=== PATIENT | female | born 1985 | race Caucasian/White ===

== ENCOUNTER 2018-02-11 06:21 | Day surgery (SDC) | payer OTHER ==
[~2018-02-11 06:21] MED LIST: Buffered Lidocaine 0.9% SYRIN* 5 ML/SYR SYRINGE INTRADERM ONE
[2018-02-11] MEDS ORDERED: Buffered Lidocaine 0.9% SYRIN* 5 ML/SYR SYRINGE ONE (06:31)
[2018-02-11] MEDS ORDERED: Midazolam* 1 MG/ML 5 ML VIAL (5 MG) ONE (07:14)
[2018-02-11] MEDS ORDERED: fentaNYL* 50 MCG/ML 2 ML VIAL (100 MCG VIAL) ONE (07:14)
[2018-02-11] MEDS ORDERED: Naloxone* 0.4 MG/ML 1 ML VIAL IV PRN (08:42)
[2018-02-11] MEDS ORDERED: Propofol* 10 MG/ML 20 ML BTL IV PUSH ONE (09:18)
[2018-02-11] MEDS ORDERED: Lidocaine 2% PF * 5 ML VIAL ONE (09:36)
--- NOTE | 2018-02-11 09:47 | BRIEFOPN ---
Brief Operative Note - Surgery Procedures: Procedures OPERATIVE REPORT PRE-OP: GERD, hiatal hernia, morbid obesity POST-OP: Same, small hiatal hernia, no esophagitis or Avilez's, normal stomach and duodenum PROCEDURE:EGD with SEDRICK bx and distal esophageal bx (38 cms) at squamocolumnar junction SURGEON: MD Heidi ANESTHESIA:MAC Dr. Mccollum ASST:none IVF:min EBL:trace SPECIMEN: SEDRICK bx and esophageal bx at 38 cms DRAIN: none WOUND CLASS:N/A COMPLICATIONS: none TO PACU
[2018-02-11 10:09] VITALS: BP 117/60
--- NOTE | 2018-02-11 14:33 | OP ---
CC: Dr. Navin Del Rosario * DATE OF OPERATION: 02/11/18 - [facility] DATE OF : 83 SURGEON: Dre Gordon MD BED SPRING MAKER: None. ANESTHESIA: Monitored anesthesia care with Dr. Rogers. PRE-OP DIAGNOSES: 1. Morbid obesity. 2. Hiatal hernia. 3. Gastroesophageal reflux disease. 4. Bariatric evaluation. POST-OP DIAGNOSES: 1. Morbid obesity. 2. Mild irregularity at 38 cm. The gastroesophageal junction without evidence of Avilez's esophagus, web, strictures, esophagitis or narrowing. 3. Stomach and duodenum were normal. OPERATIVE PROCEDURE: Esophagogastroduodenoscopy with gastric antral SEDRICK biopsy as well as biopsies at 38 cm at the squamocolumnar junction. ESTIMATED BLOOD LOSS: Trace. WOUND CLASSIFICATION: Not applicable. DRAINS: None. COMPLICATIONS: None. BRIEF HISTORY: Ms. Arina Buitrago is a 32-year-old morbidly obese woman, undergoing bariatric evaluation. She had an upper GI which showed a small sliding hiatal hernia. She has some history of reflux disease, does not take medicines. DESCRIPTION OF PROCEDURE: Written informed consent was obtained. The patient was taken to the operating room, placed in the left lateral decubitus position. Appropriate monitoring devices were given. Anesthesia was with monitored anesthesia care. Time-out verification was completed. The Olympus adult video endoscope was then inserted into the posterior pharynx under direct vision. The esophagus was intubated. The proximal, mid, and distal esophagus appeared to be unremarkable. The squamocolumnar junction was noted at 38 cm and it was slightly irregular, but no evidence of Avilez's esophagus, web, strictures, esophagitis. The stomach was entered and was insufflated. On retroflexion, there was a small sliding hiatal hernia, although this was not appeared to be significant. The cardia, body, and antrum of the stomach were normal. SEDRICK biopsies were taken. The pylorus was widely patent. The duodenal bulb and first and second portion of the duodenum were unremarkable. The endoscope was then withdrawn back up into the esophagus and several biopsies were taken at 38 cm of the distal esophagus. The endoscope was withdrawn. The remainder of the esophagus was normal. The endoscope was then withdrawn. The patient tolerated the procedure well, was taken to the recovery room in stable condition. [id number]/[facility] #: [id number] [facility]
== END 2018-02-11 10:39 | disposition home or self-care (01) ==
LOC: OR 06:21
PROVIDERS: ATTEND Surgery
DX: E66.01 Morbid (severe) obesity due to excess calories (principal); K21.0 Gastro-esophageal reflux disease with esophagitis; K44.9 Diaphragmatic hernia without obstruction or gangrene; J45.909 Unspecified asthma, uncomplicated; F32.9 Major depressive disorder, single episode, unspecified
CPT/HCPCS: 81025; 87077; 88305; J2250; J2704; J3010

== ENCOUNTER 2018-03-16 20:29 | Emergency (ER) | payer OTHER ==
[2018-03-16 20:42] VITALS: BP 133/83
--- NOTE | 2018-03-16 20:51 | UC ---
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 - History of Current Complaint Chief Complaint: UCGeneralIllness Stated Complaint: SORE THROAT Time Seen by Provider: 03/16/18 20:37 Hx Obtained From: Patient Hx Last Menstrual Period: 03/16/2018 ?: No Onset/Duration: Sudden Onset, Lasting Days - 4, Still Present Pain Intensity: 4 Pain Scale Used: 0-10 Numeric Cough: Nonproductive - Allergies/Home Medications Allergies/Adverse Reactions: Allergies Allergy/AdvReac Type Severity Reaction Status Date / Time ciprofloxacin [From Cipro] Allergy GI Upset Verified 03/16/18 20:43 PMH/Surg Hx/FS Hx/Imm Hx Previously Healthy: Yes Psychological History: Anxiety - Surgical History Surgical History: Yes Surgery Procedure, Year, and Place: TONSILLECTOMY ADNOIDECTOMY ;. LEFT FOOT WITH SCREW ;. ; - Family History Known Family History: Positive: None - Social History Occupation: Employed Full-time Lives: With Family Alcohol Use: Rare Alcohol Amount: 1-2 DRINKS/MONTH Substance Use Type: None Smoking Status (MU): Never Smoked Tobacco Have You Smoked in the Last Year: No Review of Systems All Other Systems Reviewed And Are Negative: Yes Constitutional: Positive: Negative Skin: Positive: Negative Eyes: Positive: Negative ENT: Positive: Sore Throat, Ear Ache Respiratory: Positive: Cough Cardiovascular: Positive: Negative Gastrointestinal: Positive: Negative Genitourinary: Positive: Negative Motor: Positive: Negative Neurovascular: Positive: Negative Musculoskeletal: Positive: Negative Neurological: Positive: Negative Psychological: Positive: Negative Is Patient Immunocompromised?: No Physical Exam Triage Information Reviewed: Yes Appearance: Well-Appearing, No Pain Distress, Well-Nourished Vital Signs: Initial Vital Signs Temp 99.4 F 03/16/18 20:34 Pulse 68 03/16/18 20:34 Resp 16 03/16/18 20:34 BP 133/83 03/16/18 20:34 Pulse Ox 99 03/16/18 20:34 Vital Signs Reviewed: Yes Eye Exam: Normal Eyes: Positive: Conjunctiva Clear ENT Exam: Normal ENT: Positive: Normal ENT inspection, Hearing grossly normal, Pharynx normal, TMs normal, Uvula midline. Negative: Nasal congestion, Nasal drainage, Trismus , Muffled voice, Hoarse voice, Dental tenderness, Sinus tenderness Dental Exam: Normal Neck exam: Normal Neck: Positive: Supple, Nontender, No Lymphadenopathy Respiratory Exam: Normal Respiratory: Positive: Chest non-tender, Lungs clear, Normal breath sounds, No respiratory distress, No accessory muscle use Cardiovascular Exam: Normal Cardiovascular: Positive: RRR, No Murmur, Pulses Normal, Brisk Capillary Refill Musculoskeletal Exam: Normal Musculoskeletal: Positive: Strength Intact, ROM Intact, No Edema Neurological Exam: Normal Neurological: Positive: Alert, Muscle Tone Normal Psychological Exam: Normal Skin Exam: Normal Diagnostics - Laboratory Diagnostic Studies Completed/Ordered: RST (-) Throat Pain/Nasal Course/Dx - Course Assessment/Plan: Albuterol MDI, tylenol, ibuprofen, increase fluids follow with pcp prn - Differential Dx/Diagnosis Provider Diagnoses: URI, bronchospasm Discharge - Sign-Out/Discharge Documenting (check all that apply): Patient Departure All imaging exams completed and their final reports reviewed: No Studies - Discharge Plan Condition: Stable Disposition: HOME Patient Education Materials: Upper Respiratory Infection (ED), How to Use a Metered-Dose Inhaler and a Spacer (ED) Referrals: Rachael Wasserman DO [Primary Care Provider] - If Needed - Billing Disposition and Condition Condition: STABLE Disposition: Home
[2018-03-16] MEDS ORDERED: Albuterol HFA INHALER* 8 gm MDI INH ONE (21:01)
== END 2018-03-16 21:12 | disposition home or self-care (01) ==
LOC: UCEAST 20:29
DX: J06.9 Acute upper respiratory infection, unspecified (principal); J98.01 Acute bronchospasm; Z88.1 Allergy status to other antibiotic agents
CPT/HCPCS: 87651; 99212; A9270-GY; G0463

== ENCOUNTER 2018-04-04 07:05 | Inpatient (IN) | payer OTHER ==
[2018-04-04] MEDS ORDERED: ceFAZolin 1 GM ADVAN(*) 1 GM ADDV.VIAL IVPB ONE ×2 (07:41→07:42)
[2018-04-04] MEDS ORDERED: Heparin VIAL(*) 5000 UNITS/ML VIAL (FIVE THOUSAND) ONE (07:41)
[2018-04-04] MEDS ORDERED: ceFAZolin 2 GM PREMIX in ORs 2 GM/50 ML BAG IVPB ONE (07:41)
[2018-04-04] MEDS ORDERED: Famotidine IV* 10 MG/ML 2 ML (20 mg) ONE (07:41)
[2018-04-04] MEDS ORDERED: Dexamethasone IV* 4 MG/ML 1 ML (4 MG) ONE (07:41)
[2018-04-04] MEDS ORDERED: Morphine PCA ADULT* 5 MG/ML 30 ML ONE (07:42)
[2018-04-04] MEDS ORDERED: Scopolamine 1.5 mg* PATCH ONE (07:42)
[2018-04-04] MEDS ORDERED: Morphine VIAL* 4 MG/ML VIAL (1 ml vial) IV PRN (09:11)
[2018-04-04] MEDS ORDERED: Naloxone* 0.4 MG/ML 1 ML VIAL IV PRN (09:11)
[2018-04-04] MEDS ORDERED: PROCHLORPERAZINE INJ 5 MG/ML 2 ML VIAL IV PRN (09:11)
[2018-04-04] MEDS ORDERED: Acetaminophen IV 1GM/100ML * 1,000 MG/100 ML VIAL IVPB ONE (09:11)
[2018-04-04] MEDS ORDERED: fentaNYL* 50 MCG/ML 2 ML VIAL (100 MCG VIAL) ONE ×2 (12:06→13:14)
[2018-04-04] MEDS ORDERED: Morphine VIAL* 4 MG/ML VIAL (1 ml vial) ONE (12:06)
[2018-04-04] MEDS: fentaNYL* 50 MCG/ML 2 ML VIAL (100 MCG VIAL) IV PRN ×5 (12:08→13:43)
[2018-04-04] MEDS ORDERED: Acetaminophen ADULT LIQ* 650 MG/20.3 ML UDC PO PRN (12:09)
[2018-04-04] MEDS ORDERED: HYDROmorphone INJ1* 1 MG/ML SYRINGE IV PRN ×2 (12:09→12:18)
[2018-04-04] MEDS ORDERED: Ondansetron INJ* 2 MG/ML VIAL IV PRN (12:09)
--- NOTE | 2018-04-04 12:09 | OP ---
Operative Report - Blank - Operative Report Date of Operation: 04/04/18 Note: Brief Operative Note Preop Dx: Morbid Obesity Postop Dx: same Procedure: Laparoscopic Darlene en Y gastric bypass Anesthesia: GET Surgeon: Miguel Ángel Nurse Case Management: RENETTA Hutchison Fluids: 2000 ml RL EBL: 100 ml Specimen: none Drains: none Findings: dictated
[2018-04-04] MEDS ORDERED: PROCHLORPERAZINE INJ 5 MG/ML 2 ML VIAL ONE (12:22)
[2018-04-04] MEDS: Ketorolac INJ* 30 MG/ML 1 ML VIAL IV PRN ×2 (14:58→21:20)
[2018-04-04] MEDS: Heparin VIAL(*) 5000 UNITS/ML VIAL (FIVE THOUSAND) SUBCUT SCH ×2 (15:31→21:25)
[2018-04-04] MEDS: Famotidine IV* 10 MG/ML 2 ML (20 mg) IV SLOW PU SCH (20:12)
[2018-04-05] MEDS: Ketorolac INJ* 30 MG/ML 1 ML VIAL IV PRN ×3 (05:51→19:32)
[2018-04-05] MEDS: Heparin VIAL(*) 5000 UNITS/ML VIAL (FIVE THOUSAND) SUBCUT SCH ×3 (05:53→21:47)
[2018-04-05] MEDS: Famotidine IV* 10 MG/ML 2 ML (20 mg) IV SLOW PU SCH ×2 (09:11→21:43)
--- NOTE | 2018-04-05 09:41 | OP ---
CC: [facility]; [facility] * DATE OF OPERATION: 04/04/18 - ROOM #353 DATE OF : 83. SURGEON: Navin Del Rosario MD. FACILITIES MANAGER: RENETTA Ferguson. ANESTHESIOLOGIST: Jonn Hodges MD. ANESTHESIA: General endotracheal. PRE-OP DIAGNOSIS: Morbid obesity. POST-OP DIAGNOSIS: Morbid obesity. OPERATIVE PROCEDURE: Laparoscopic Darlene-en-Y gastric bypass. ESTIMATED BLOOD LOSS: 50 mL. IV FLUIDS: Crystalloids. SPECIMEN: None. DRAINS: None. COMPLICATIONS: None. COUNTS: Instrument, needle, sponge counts correct. DESCRIPTION OF PROCEDURE: The patient was brought to the operating room, placed on the table supine. Sequential compression devices were placed on both lower extremities. General anesthesia was administered. Collins catheter was placed. She was positioned and padded appropriately and received appropriate intravenous antibiotics. She was prepped and draped in the usual sterile fashion and time-out was performed. Local anesthetic was infiltrated into the skin and soft tissue prior to each incision. Entry to the abdomen was through a left upper quadrant incision accommodating a 12-mm optical trocar. After accessing the peritoneal cavity, carbon dioxide was insufflated to a pressure of 15 mmHg. Under direct visualization, 12-mm bladeless trocars were placed in the supraumbilical midline and right upper quadrant. A 5-mm trocar was placed in the right upper quadrant medially and another one in the left upper quadrant laterally. A [place] liver retractor was placed percutaneously in the subxiphoid position and used to elevate the left lobe of the liver. There was a hiatal hernia noted with dimpling anteriorly. The stomach was retracted cephalad and dissection was performed bluntly at the angle of His to free this away from the left douglas of the diaphragm. Next, perigastric dissection was undertaken on the lesser curvature of the stomach at the second crossing vein. The vascular bundle was divided with LigaSure. The lesser sac was entered and then with several firings of the EndoGIA stapler with ortiz cartridges, a gastric pouch was created approximating 15 to 30 mL volume. The staple lines were noted to be intact and hemostatic. Next, the omentum was mobilized from the lower abdomen. This included lysis of adhesions of omentum to the left lower quadrant. After retracting the omentum cephalad, it was divided down the midline with LigaSure. Ligament of Treitz was identified. The jejunum was measured out for approximately 50 cm at which point the loop was sutured to the lateral staple line of the gastric pouch with interrupted 2-0 silks. Next, a gastrectomy was created in the gastric pouch and there was noted to be brisk bleeding from within the lumen. Ultimately, it was controlled by placing a clip on the area of the gastrohepatic ligament. An anastomosis was then performed [id number] with the EndoGIA stapler with a 30- mm ortiz cartridge. The gastroenterotomy was then closed with 3-0 PDS. There were some venous congestion noted at the lower aspect of the gastric pouch anteriorly. Inspection of the posterior aspect revealed pink and healthy tissue. In order to imbricate this area, 2-0 silks were used to oversew this with the 34-Latvian gastric lavage tube through the lumen in order to assure this did not occlude the lumen. To complete the anastomosis, the [place] loop was divided to left of the gastric pouch with a 45-mm SHEELA stapler. Next, the Darlene limb was measured out for 75 cm length and at this point a functional end-to-side jejunojejunostomy was created with a 60-mm ortiz EndoGIA stapler. The common enterotomy was run closed with the 3-0 PDS to and fro. 3-0 silks were then used to close the mesenteric defect. The gastrojejunal anastomosis was tested with methylene blue dye instilled through the orogastric tube. No leak was identified. The tube was withdrawn after aspirating the solution. Final inspection revealed hemostasis to be excellent and there was noted to be no twisting of the Darlene limb. At this point, the ports were removed under direct visualization and carbon dioxide was released. Skin incisions were closed with 4-0 Monocryl in a subcuticular fashion. Steri-Strips were applied. The patient was extubated uneventfully and transferred to the recovery room in stable condition. [id number]/[facility] #: [id number] [facility]ITALViky
[2018-04-05] MEDS: HYDROcodone/ACET. 7.5/325 LIQ* 15 ML UDC PO PRN ×3 (10:30→23:21)
[2018-04-05] MEDS: D5W 1/2 NS KCl 20 Meq 1000 ML* 1,000 ML IV SCH ×2 (12:39→20:43)
[2018-04-06] MEDS: D5W 1/2 NS KCl 20 Meq 1000 ML* 1,000 ML IV SCH (05:07)
[2018-04-06] MEDS: Ketorolac INJ* 30 MG/ML 1 ML VIAL IV PRN (05:12)
[2018-04-06] MEDS: Heparin VIAL(*) 5000 UNITS/ML VIAL (FIVE THOUSAND) SUBCUT SCH (05:16)
[2018-04-06] MEDS: HYDROcodone/ACET. 7.5/325 LIQ* 15 ML UDC PO PRN (09:16)
[2018-04-06] MEDS: Famotidine IV* 10 MG/ML 2 ML (20 mg) IV SLOW PU SCH (09:16)
--- NOTE | 2018-04-06 09:17 | PN ---
Progress Note - Progress Note Date of Service: 04/06/18 SOAP: Subjective: Pt seen and examined. feels well. ambulating Objective: Temp Pulse Resp BP Pulse Ox 98.5 F 60 18 111/50 97 04/06/18 04:08 04/06/18 04:08 04/06/18 04:08 04/06/18 04:08 04/06/18 04:08 Intake & Output 04/05/18 04/06/18 04/06/18 22:59 06:59 14:59 Intake Total 3378 90 Output Total 800 250 Balance 2578 -160 a and o x3, nad abdo: soft/ obese, NT ext wnl Assessment: POD 2 rygb Plan: d/c home appointment next week at [facility]
[2018-04-06 09:35] VITALS: BP 127/66
== END 2018-04-06 11:20 | disposition home or self-care (01) | DRG 403 ==
LOC: AA 07:05 → SSU 12:09
PROVIDERS: ADMIT Surgery; ATTEND Surgery
PROC: 0D164ZA Bypass Stomach to Jejunum, Percutaneous Endoscopic Approach (ICD-10-PCS; principal; 2018-04-04)
PROC: 0DNW4ZZ Release Peritoneum, Percutaneous Endoscopic Approach (ICD-10-PCS; 2018-04-04)
DX: E66.01 Morbid (severe) obesity due to excess calories (principal); Q79.6 Ehlers-Danlos syndromes; Z68.43 Body mass index [BMI] 50.0-59.9, adult; K66.0 Peritoneal adhesions (postprocedural) (postinfection); K44.9 Diaphragmatic hernia without obstruction or gangrene; I10 Essential (primary) hypertension; F32.9 Major depressive disorder, single episode, unspecified; F41.9 Anxiety disorder, unspecified; Z79.899 Other long term (current) drug therapy; Z88.8 Allergy status to other drugs, medicaments and biological substances; Z80.51 Family history of malignant neoplasm of kidney; Z80.1 Family history of malignant neoplasm of trachea, bronchus and lung; Z80.3 Family history of malignant neoplasm of breast; Z80.8 Family history of malignant neoplasm of other organs or systems; Z82.49 Family history of ischemic heart disease and other diseases of the circulatory system; Z82.3 Family history of stroke; Z81.8 Family history of other mental and behavioral disorders
CPT/HCPCS: A9270-GY; J0690; J0780; J1100; J1170; J1644; J1885; J2270; J2405; J3010

== ENCOUNTER 2021-02-07 08:29 | Inpatient (IN) ==
[2021-02-07] MEDS ORDERED: Lactated Ringers 1000 ml BAG 1,000 ML IV ONE (09:39)
[2021-02-07] MEDS ORDERED: Famotidine IV 10 MG/ML 2 ml VIAL (20 mg) IV SLOW PU ONE (09:39)
[2021-02-07] MEDS ORDERED: Acetaminophen IV 1 GM/100ML 100 ML IV ONE (09:40)
[2021-02-07 10:42] LABS: ABS Eosinophils 0.3 10^3/ul (0-0.6); ABS Lymphocytes 1.3 10^3/ul (1.0-4.8); ABS Monocytes 1.1 10^3/ul (0-0.8); ABS Neutrophils 17.5 10^3/ul (1.5-7.7); Eosinophil % 1.3 %; Hematocrit 36 % (35-47); Hemoglobin 11.9 g/dL (12.0-16.0); Lymphocyte % 6.5 %; Mean Corpuscular HGB Conc 33 g/dL (31-36); Mean Corpuscular Hemoglobin 29 pg (27-31); Mean Corpuscular Volume 88 fL (80-97); Mean Platelet Volume 7.4 fL (7.4-10.4); Platelet Count 473 10^3/uL (150-450); Red Blood Count 4.15 10^6 /uL (3.70-4.87); Red Cell Distribution Width 13 % (10-15); White Blood Count 20.1 10^3/uL (3.5-10.8)
[2021-02-07 10:57] LABS: Urine Appearance Cloudy; Urine Bilirubin Negative (Negative); Urine Blood Negative (Negative); Urine Color Yellow; Urine Glucose Negative (Negative); Urine Ketones Negative (Negative); Urine Nitrite Negative (Negative); Urine Protein Negative (Negative); Urine Specific Gravity 1.013 (1.002-1.030); Urine Urobilinogen Negative (Negative)
[2021-02-07 11:02] LABS: Calcium 9.5 mg/dL (8.6-10.3); Magnesium 1.8 mg/dL (1.9-2.7); Potassium 3.8 mmol/L (3.5-5.0); Total Bilirubin 0.5 mg/dL (0.2-1.0)
[2021-02-07 11:04] LABS: Troponin I 0.01 ng/mL (<0.03)
[2021-02-07 11:08] LABS: Albumin/Globulin Ratio 1.1 (1-3); C Reactive Protein 8.93 mg/L (<8.01); Globulin 3.6 g/dL (2-4); Total Protein 7.6 g/dL (6.4-8.9)
[2021-02-07] MEDS ORDERED: Iohexol 300 (CONTRAST) 10 ML SDV IV ONE (11:17)
[2021-02-07] MEDS ORDERED: Magnesium Sulfate 2 gm BAG 2 GM/50 ML BAG IVPB ONE (11:26)
[2021-02-07] MEDS ORDERED: Ondansetron 4 mg VIAL 2 MG/ML 2 ml VIAL IV ONE ×2 (12:13→14:53)
[2021-02-07 12:33] LABS: HCG Pregnancy 0.61 mIU/mL
[2021-02-07] MEDS ORDERED: Piperacillin/Tazobac ADVAN 3.375 GM in NS 0.9% 100 ml BAG 100 ML IV ONE (13:28)
[2021-02-07 14:40] LABS: Rapid COVID-19 Molecular Undetected (Undetected)
[2021-02-07] MEDS ORDERED: fentaNYL 100 mcg/2 ml 50 MCG/ML VIAL IV SLOW PU ONE (14:42)
[2021-02-07] MEDS ORDERED: Ondansetron 4 mg VIAL 2 MG/ML 2 ml VIAL ONE ×2 (14:53→17:24)
[2021-02-07] MEDS ORDERED: Rocuronium 50 mg VIAL 10 mg/ml 5 ml VIAL (50 mg) ONE ×2 (15:14→17:08)
[2021-02-07] MEDS ORDERED: Midazolam 5 mg/5 ml VIAL 1 mg/ml 5 ml VIAL (5 mg) ONE (15:15)
[2021-02-07] MEDS ORDERED: fentaNYL 100 mcg/2 ml 50 MCG/ML VIAL ONE ×2 (15:15→17:10)
[2021-02-07] MEDS ORDERED: Lidocaine 2% PF 5 ML VIAL ONE (15:21)
[2021-02-07] MEDS ORDERED: Propofol 10 MG/ML 20 ML BTL ONE ×2 (15:21→17:24)
[2021-02-07] MEDS ORDERED: Bupivacaine 0.25% EPI 200,000 30 ML SDV ONE (16:06)
[2021-02-07] MEDS ORDERED: Dexamethasone IV 4 MG/ML VIAL 1 ml VIAL ONE (17:24)
[2021-02-07] MEDS ORDERED: DiMENhydriNATE IV 50 mg/ml 1 ml VIAL ONE ×2 (17:24→18:55)
[2021-02-07] MEDS ORDERED: Naloxone 0.4 mg VIAL 0.4 mg/ml 1 ml VIAL IV PRN (17:43)
[2021-02-07] MEDS ORDERED: DiMENhydriNATE IV 50 mg/ml 1 ml VIAL IV PUSH PRN (17:43)
[2021-02-07] MEDS ORDERED: HYDROmorphone 1 MG/1 ML SYRINGE IV SLOW PU PRN (18:54)
[2021-02-07] MEDS ORDERED: HYDROmorphone 1 MG/1 ML SYRINGE ONE (18:55)
[2021-02-07] MEDS: HYDROmorphone 1 MG/1 ML SYRINGE IV PRN ×2 (18:59→20:15)
[2021-02-07] MEDS: Piperacillin/Tazobactam VIAL 3.375 GM in NS 0.9% 100 ml BAG 100 ML IVPB SCH (21:09)
[2021-02-07] MEDS: Pantoprazole VIAL 40 MG VIAL IV SCH (21:09)
[2021-02-07] MEDS: NS 0.9% 1000 ml BAG 1,000 ML IV SCH (21:17)
[2021-02-07] MEDS: oxyCODONE/Acetamin 5/325 mg TAB PO PRN (22:05)
[2021-02-08] MEDS: oxyCODONE/Acetamin 5/325 mg TAB PO PRN ×3 (02:33→20:07)
[2021-02-08] MEDS ORDERED: Magnesium Sulfate 2 gm BAG 2 GM/50 ML BAG IVPB ONE (04:30)
[2021-02-08 06:04] LABS: ABS Lymphocytes 0.7 10^3/ul (1.0-4.8); ABS Monocytes 0.4 10^3/ul (0-0.8); Hematocrit 31 % (35-47); Hemoglobin 10.4 g/dL (12.0-16.0); Lymphocyte % 3.9 %; Mean Corpuscular HGB Conc 33 g/dL (31-36); Mean Corpuscular Hemoglobin 29 pg (27-31); Mean Corpuscular Volume 86 fL (80-97); Mean Platelet Volume 7.8 fL (7.4-10.4); Platelet Count 368 10^3/uL (150-450); Red Blood Count 3.62 10^6 /uL (3.70-4.87); Red Cell Distribution Width 13 % (10-15); White Blood Count 17.1 10^3/uL (3.5-10.8)
[2021-02-08 06:28] LABS: Calcium 8.8 mg/dL (8.6-10.3); Potassium 4.1 mmol/L (3.5-5.0)
[2021-02-08] MEDS: Ondansetron 4 mg VIAL 2 MG/ML 2 ml VIAL IV PRN ×2 (06:31→09:41)
[2021-02-08] MEDS: Piperacillin/Tazobactam VIAL 3.375 GM in NS 0.9% 100 ml BAG 100 ML IVPB SCH ×3 (06:32→22:01)
[2021-02-08] MEDS: Heparin 5000 UNITS/ML 1 mL VIAL SUBCUT SCH ×2 (13:12→22:02)
[2021-02-08] MEDS: Pantoprazole VIAL 40 MG VIAL IV SCH (22:02)
[2021-02-08] MEDS: NS 0.9% 1000 ml BAG 1,000 ML IV SCH (23:23)
[2021-02-09] MEDS ORDERED: NS 0.9% 100 ml BAG 100 ML ONE (05:34)
[2021-02-09] MEDS: Heparin 5000 UNITS/ML 1 mL VIAL SUBCUT SCH ×3 (05:41→21:44)
[2021-02-09] MEDS: Piperacillin/Tazobactam VIAL 3.375 GM in NS 0.9% 100 ml BAG 100 ML IVPB SCH ×4 (05:49→21:45)
[2021-02-09] MEDS: NS 0.9% 1000 ml BAG 1,000 ML IV SCH (05:51)
[2021-02-09] MEDS: oxyCODONE/Acetamin 5/325 mg TAB PO PRN ×3 (07:33→20:08)
[2021-02-09] MEDS: Pantoprazole VIAL 40 MG VIAL IV SCH (20:09)
[2021-02-10] MEDS: oxyCODONE/Acetamin 5/325 mg TAB PO PRN ×5 (00:41→23:42)
[2021-02-10] MEDS: Heparin 5000 UNITS/ML 1 mL VIAL SUBCUT SCH ×3 (05:38→22:18)
[2021-02-10] MEDS: Piperacillin/Tazobactam VIAL 3.375 GM in NS 0.9% 100 ml BAG 100 ML IVPB SCH ×3 (05:41→22:18)
[2021-02-10 06:03] LABS: ABS Basophils 0.1 10^3/ul (0-0.2); ABS Eosinophils 0.2 10^3/ul (0-0.6); ABS Lymphocytes 2.3 10^3/ul (1.0-4.8); ABS Monocytes 0.5 10^3/ul (0-0.8); ABS Neutrophils 3.7 10^3/ul (1.5-7.7); Eosinophil % 2.8 %; Hematocrit 27 % (35-47); Hemoglobin 9.2 g/dL (12.0-16.0); Lymphocyte % 34.4 %; Mean Corpuscular HGB Conc 34 g/dL (31-36); Mean Corpuscular Hemoglobin 30 pg (27-31); Mean Corpuscular Volume 87 fL (80-97); Mean Platelet Volume 7.2 fL (7.4-10.4); Platelet Count 320 10^3/uL (150-450); Red Blood Count 3.11 10^6 /uL (3.70-4.87); Red Cell Distribution Width 13 % (10-15); White Blood Count 6.8 10^3/uL (3.5-10.8)
[2021-02-10 06:24] LABS: Calcium 8.6 mg/dL (8.6-10.3); Potassium 3.6 mmol/L (3.5-5.0)
[2021-02-10] MEDS: Ondansetron 4 mg VIAL 2 MG/ML 2 ml VIAL IV PRN (13:13)
[2021-02-10] MEDS: Pantoprazole VIAL 40 MG VIAL IV SCH (22:18)
[2021-02-11] MEDS: Piperacillin/Tazobactam VIAL 3.375 GM in NS 0.9% 100 ml BAG 100 ML IVPB SCH (05:58)
[2021-02-11] MEDS: Heparin 5000 UNITS/ML 1 mL VIAL SUBCUT SCH (06:02)
[2021-02-11 07:34] VITALS: BP 106/59
[2021-02-11] MEDS: oxyCODONE/Acetamin 5/325 mg TAB PO PRN ×2 (08:25→13:33)
[2021-02-11] MEDS: Ondansetron 4 mg VIAL 2 MG/ML 2 ml VIAL IV PRN (10:14)
== END 2021-02-11 13:35 | disposition home or self-care (01) | DRG 223 ==
LOC: ED 08:29 → SDS 14:45 → SSU 14:45 → OBSVTOIN 20:49
PROVIDERS: ADMIT Surgery; ATTEND Surgery